=== PATIENT | female | born 1980 | race Caucasian/White ===

== ENCOUNTER → 2019-08-22 19:26 | Outpatient (CLI) | payer OTHER, SELFPAY ==
--- NOTE | ~2019-08-22 | XR_ITS ---
EXAMINATION: XR chest 2V EXAM DATE: 08/22/2019 19:41 INDICATION: Wheezing. TECHNIQUE: Frontal and lateral projections of the chest obtained and reviewed. There is no prior wilbert dy for comparison. FINDINGS: The lungs are clear. There are no pleural effusions. The cardiomediastinal silhouette is within normal limits. There is no pneumothorax suspected. The bones and soft tissues are unremarkab le. IMPRESSION: Normal chest x-ray exam. Reviewed, dictated and finalized at location A. RE AND AFTER SCHOOL DAYCARE WORKER IMPRESSION: Normal chest x-ray exam.
== END ==
PROVIDERS: PCP Emergency Medicine; Visit Provider Emergency Medicine
DX: R06.2 Wheezing (principal)
CPT/HCPCS: 71046

== ENCOUNTER 2025-04-19 08:27 | Emergency (ER) | payer OTHER, SELFPAY ==
--- NOTE | 2025-04-19 08:28 | ED_ITS ---
HPI - Back Pain/Injury General Chief Complaint: Back Pain/Injury Stated Complaint: Lower Back pain Time Seen by Provider: 04/19/25 08:28 Source: patient Mode of arrival: ambulatory Limitations: no limitations History of Present Illness HPI Narrative: Grecia is a 45 year old female patient presenting to the clinic today with c/o low back pain x 1 day. She reports she was getting out of the shower yesterday and twisted her back and immediately had tightness and sharp pain in her low back. She reports her pain is currently a 3/10. Took Tylenol and ibuprofen last night. Has taking and a Flexeril this morning and that has helped. Denies any saddle anesthesia or loss of bowel or bladder. No radiation of pain down her lower extremities. Denies any urinary symptoms, vaginal discharge, or odor. Last menstrual period was March 29 2025 Related Data Home Medications ?Medication ?Instructions ?Recorded ?Confirmed ?Last Taken ?Type escitalopram oxalate 10 mg tablet mg 04/19/25 Unknown History estradiol 0.025 mg/24 hr 04/19/25 Unknown History semiweekly transdermal patch (Lyllana) progesterone micronized 100 mg mg 04/19/25 Unknown Hi story capsule Allergies Allergy/AdvReac Type Severity Reaction Status Date / Time No Known Allergies Allergy Verified 04/19/25 08:42 Review of Systems Review of Systems: Pertinent positives per HPI. Patient denies any fever, chills, rash, headache, visual changes, dizziness, cough, runny nose, sore throat, shortness of breath, chest pain, palpitations, nausea, vomiting, diarrhea, constipation, abdominal pain, or any urinary issues. PMFSH Comments At the time of my signature, I reviewed and agree with the nursing past medical, surgical, social, and family history. There is no relevant family history pertinent to the patient complaint. Exam Narrative: General: Well-developed, obese, in no apparent distress Head: Normocephalic, atraumatic. Cardio: Regular rate and rhythm, s1 and s2 normal, no murmur appreciated. Resp: Clear to auscultation bilaterally, no rhonchi, rales, wheezing or rubs. Musculoskeletal: No deformity, no tenderness to palpation over the cervical or thoracic spine, tender to palpation over lower lumbar paraspinous musculature, grossly normal range of motion, muscle strength strong and equal in BLE. SLT negative, patellar reflexes 2/4 bilaterally, negative foot drop, normal gait and station Course Course Emergency Course: Portions of this record may have been created with voice recognition software. Level of Care: Express Care Visit Vital Signs Vital signs: Vital Signs Temperature 36.6 C 04/19/25 08:38 Pulse Rate 86 04/19/25 08:38 Respiratory Rate 20 04/19/25 08:38 Blood Pressure 137/96 H 04/19/25 08:38 Pulse Oximetry 100 04/19/25 08:38 Oxygen Delivery Room Air 04/19/25 08:38 Temperature 36.6 C 04/19/25 08:38 Pulse Rate 86 04/19/25 08:38 Respiratory Rate 20 04/19/25 08:38 Blood Pressure 137/96 H 04/19/25 08:38 Pulse Oximetry 100 04/19/25 08:38 Oxygen Delivery Room Air 04/19/25 08:38 Vital signs reviewed MDM - Back Pain/Injury MDM Narrative Medical decision making narrative: At the time of visit patient is resting comfortably on the exam table. Patient appears to be nontoxic. C/o low back pain x 1 day. She reports she was getting out of the shower yesterday and twisted her back and immediately had tightness and sharp pain in her low back. She reports her pain is currently a 3/10. Took Tylenol and ibuprofen last night. Has taking and a Flexeril this morning and that has helped. Denies any saddle anesthesia or loss of bowel or bladder. No radiation of pain down her lower extremities. Denies any urinary symptoms, vaginal discharge, or odor. Last menstrual period was March 29 2025. On exam patient has tenderness to palpation over the lumbar paraspinous musculature, no tenderness to palpation over the cervical, thoracic, or lumbar spine. Toradol 60 mg IM ordered Medications: Toradol 60 mg IM given in the clinic today. Pain improving down to a 2/10 after Toradol injection Plan: I suspect patient has low back strain/muscle spasms. Prescription for naproxen and Flexeril was sent to the pharmacy. Supportive measures were discussed with the patient and they voiced understanding discharge instructions and agrees to treatment plan. Return precautions reviewed Differential Diagnosis Differential diagnosis: Likely lumbar radiculopathy, sciatica, strain of lumbar region, discitis and other (Back muscles spasms) Discharge Plan Discharge Clinical Impression: Strain of lumbar region Qualifiers: Encounter type: initial encounter Qualified Code(s): S39.012A - Strain of muscle, fascia and tendon of lower back, initial encounter Patient Disposition: Home Condition: Stable Instructions: Antibiotic Form, Acute Low Back Pain (ED), Lower Back Exercises (ED) Additional Instructions: Toradol 60 mg IM given in the clinic today Take any prescription medication only as prescribed-naproxen and Flexeril Be mindful of sedation precautions given to you if taking a muscle relaxer. May use heat or ice to the affected area Consider massage or chiropractor adjustment if this was discussed with provider May use blue emu, lidocaine patches, or asper cream to affected area- do not apply heat or ice directly over cream- can cause burn. Complete appropriate back stretching exercises. Follow up with your PCP in 3-5 days if symptom persist. Patient Language: Vietnamese Prescriptions: New naproxen 500 mg tablet 500 mg PO BID PRN (Reason: pain) 7 Days Qty: 14 0RF cyclobenzaprine 10 mg tablet 10 mg PO Q8H PRN (Reason: muscle spasm) 7 Days Qty: 21 0RF No Action progesterone micronized 100 mg capsule estradiol [Lyllana] 0.025 mg/24 hr patch semiweekly escitalopram oxalate 10 mg tablet Follow-up/Referrals: UNKNOWN,DOCTOR [Non-Staff] Time of Disposition: 08:49 Quality NIHSS Nursing Documentation ED NIHSS nursing documentation: reviewed/agree
--- OUTSIDE RECORDS SUMMARY | 2025-04-19 08:33 | XMS_ITS | Clinical Summary ---
Author Organization [facility] Medical Office Building [address] Address [address] [place] [address] Care Team Providers Care Sales Operations Director Name Role Phone Tona Suárez NP Unavailable [phone] Bharathi Kemp MD Primary Care Provider [phone] Allergies No known active allergies Medications acetaminophen (TYLENOL) 500 mg tablet Take 2 tablets (1,000 mg total) by mouth every 6 (six) hours as needed for pain Active ibuprofen 200 mg tab/cap Take 2 tablet/capsu le (400 mg total) by mouth every 6 (six) hours as needed for pain Active Active Problems Problem Noted Date Diagnosed Date Annual physical exam 08/12/2024 Assessment & Plan (08/12/2024 8:48 AM SALES OFFICE ADMINISTRATOR): Discussed lifestyle modifications, diet and exercise. Routine blood work ordered/reviewed today. Yearly vision and dental examinations. Anal skin tag 09/23/2023 Hemorrhoids 09/23/2023 Heart palpitations 07/26/2022 Assessment & Plan (07/26/2022 9:11 AM SALES OFFICE ADMINISTRATOR): Currently asymptomatic, EKG performed in office today shows normal sinus rhythm. Should heart palpitations return or patient has worrisome symptoms please notify us and I will refer you to cardiology. For severe symptoms, go to nearest emergency room. Influenza vaccine refused 07/26/2022 Neck pain 02/10/2022 Assessment & Plan (02/10/2022 3:09 PM CDT): Hold off on returning to chiropractor for now. Xrays ordered. Rxs given, will follow. LUE numbness 02/10/2022 Assessment & Plan (02/10/2022 3:08 PM CDT): Trial of muscle relaxer, suspect torticollis. Will follow. Abnormal mammogram 09/19/2021 Abnormally low high density lipoprotein (HDL) cholesterol with hypertriglyceridemia 07/17/2021 Assessment & Plan (08/12/2024 8:14 AM SALES OFFICE ADMINISTRATOR): Lab Results Component Value Date CHOL 144 08/01/2023 CHOL 148 09/13/2022 CHOL 147 01/18/2022 Lab Results Component Value Date HDL 36 (L) 08/01/2023 HDL 38 (L) 09/13/2022 HDL 32 (L) 01/18/2022 Lab Results Component Value Date LDLCALC 90 08/01/2023 LDLCALC 97 09/13/2022 LDLCALC 95 01/18/2022 LDL 77 02/24/2014 Lab Results Component Value Date TRIG 89 08/01/2023 TRIG 67 09/13/2022 TRIG 98 01/18/2022 No results found for: POCCHDLR No results found for: POCNONHDL No results found for: POCCHLPL Repeat lipid panel now Assessment & Plan (08/01/2023 12:06 PM SALES OFFICE ADMINISTRATOR): Asymptomatic, labs ordered, will follow. Low-cholesterol diet recommended. Consider adding a omega-3 fatty acid supplement. Assessment & Plan (01/18/2022 10:21 AM CDT): Low chol diet recommended, labs ordered, will follow. Encouraged patient to re- start OTC omega-3 fatty acid supplements. Assessment & Plan (07/17/2021 9:39 AM SALES OFFICE ADMINISTRATOR): HDL too low, triglycerides mildly elevated, this is according to old data in EHR. Labs ordered, will follow. Recommended [id number] omega-3 fatty acid supplements, 2000 mg twice a day. Class 2 severe obesity due t o excess calories with serious comorbidity and body mass index (BMI) of 35.0 to 35.9 in adult 07/17/2021 Assessment & Plan (08/12/2024 8:14 AM SALES OFFICE ADMINISTRATOR): Wt Readings from Last 3 Encounters: 10/30/23 94.3 kg (208 lb) 09/17/23 94.8 kg (209 lb) 08/01/23 95 kg (209 lb 6.4 oz) BMI Readings from Last 3 Encounters: 10/30/23 35.70 kg/m 09/17/23 35.87 kg/m 08/01/23 35.94 kg/m Not at goal of bmi <30 Continue diet and exercise BMI Follow-up includes: nutrition counseling and exercise counseling. Assessment & Plan (08/01/2023 12:07 PM SALES OFFICE ADMINISTRATOR): Weight reduction, daily exercise and dietary modifications recommended., as obesity can complicate their hypercholesterolemia Assessment & Plan (02/10/2022 3:19 PM CDT): Weight reduction, daily exercise and dietary modifications recommended. Assessment & Plan (01/18/2022 10:20 AM CDT): Weight reduction, daily exercise and dietary modifications recommended. Assessment & Plan (07/17/2021 9:39 AM SALES OFFICE ADMINISTRATOR): Weight reduction, daily exercise and dietary modifications recommended. Menorrhagia 03/07/2020 Overview (07/26/2022): Note: Unchanged Menstrual migraine 08/02/2015 Migraine 02/24/2014 Overview (11/22/2016): Migraine Resolved Problems Problem Noted Date Diagnosed Date Resolved Date Other hemorrhoids 08/01/2023 08/12/2024 Assessment & Plan (08/01/2023 12:07 PM SALES OFFICE ADMINISTRATOR): Trial of suppositories. Referred to colorectal surgeon for further evaluation management. Torticollis, acute 02/07/2022 Assessment & Plan (02/10/2022 3:18 PM CDT): Steroid dose-pack ordered, will follow. Skin lesion of back 01/18/2022 08/12/20 24 Assessment & Plan (01/18/2022 10:21 AM CDT): Referred to dermatology for further eval/mgmt. Palpitations 07/17/2021 01/18/2022 Assessment & Plan (07/17/2021 9:38 AM SALES OFFICE ADMINISTRATOR): Asymptomatic during time of exam, the show mild sinus tachycardia. Referred to cardiology for further evaluation and management. Pain of right great toe 05/20/201606/20 Paronychia of great toe, right 05/20/2016 07/17/2021 Herpes simplex 05/15/2011 08/12/2024 Overview (07/26/2022): Note: + blood test with previous Immunizations Immunization Administration Dates Next Due Influenza, Quadrivalent, Spl it, Preservative Free, Intramuscular 06/23/2018 Influenza, Split 06/12/2010 Influenza, Trivalent, IM (MDV) 05/18/2011 Influenza, Unspecified 08/12/2024(Deferr ed: Patient Refused),08/01/2023(Deferred: Patient Refused),08/01/2022(Deferred: Patient Refused),07/17/2021(Deferred: Patient Refused),07/17/2021(Deferred: Patient Refused),05/18/2021(Deferred: Patient Refused),05/18/2020(Deferred: Patient Refused) Td, adsorbed 03/28/2006 Tdap 08/01/2023 Surgical History Surgery Date Site/Laterality Comments TONSILLECTOMY 08/18/1991 - 08/17/1992 Tonsillectomy ABLATION 07/18/2020 Medical History Medical History Date Comments Hx Other Medical tonsillectomy Smoking Migraines 2006 Family History Medical History Relation Name Comments Diabetes type II Father Raymon Diabetes -T ype 2; Cancer Maternal Grandfather Pacheco Prostate cancer Maternal Grandfather Pacheco Cancer Maternal Grandmother Maddie Cancer -; Glaucoma Maternal Grandmother Maddie Glaucom a; Depression Mother Eloise Tinsley Depression; Obesity Mother Eloise Tinsley Obesity; Breast cancer Mother's Sister 1 Mirella Cancer Mother's Sister 1 Mirella Other Mother's Sister 2 Beverley Cancer -br east mets to bone; Cause of : Cancer -breast mets to bone Anesthesia problems Neg Hx Relation Name Status Comments Father Raymon Alive Maternal Grandfather Pacheco Maternal Grandmother Maddie Mother Eloise Tinsley Alive Mother's Sister 1 Mirella (Age 62) Mother's Sister 2 Beverley Social History Tobacco Use Types Packs/Day Years Used Date Smoking Tobacco: Former Cigarettes Smokeless Tobacco: Never Tobacco Cessation:Counseling Given: No Alcohol Use Standard Drinks/Week Comments No 0 (1 standard drink = 0.6 oz pur e alcohol) AUDIT-C Answer Date Recorded Q1: How often do you have a drink containing alcohol? Never 08/12/2024 Q2: How many drinks containi ng alcohol do you have on a typical day when you are drinking? Patient does not drink Q3: How often do you have si x or more drinks on one occasion? Never 08/12/2024 PHQ-2 Answer Date Recorded PHQ-2 Total Score (If total score is 3 or more points, staff should administer the PHQ-9) 0 08/12/2024 Personal Safety Answer Date Recorded Have you ever been in or are you currently in a harmful physical or emotional relationship or is someone making you feel afraid or unsafe? Denies 11/21/2023 Comments No Sex and Gender Information Value Date Recorded Sex Assigned at Not on file Legal Sex Female 11:41 AM SALES OFFICE ADMINISTRATOR Gender Identity Female 09/13/2022 10:15 AM SALES OFFICE ADMINISTRATOR Sexual Orientation Straight 07/10/2021 3: 55 PM SALES OFFICE ADMINISTRATOR Obstetrics History Para Term AB IAB SAB Ectopic Multiple Livin g Live Births 2 2 2 Date Outcome GA Total Labor Labor/2nd/3rd Weight Sex Type Anes PTL Magui A1 A5 Name Clin Term Term Last Filed Vital Signs Vital Sign Reading Time Taken Comments Blood Pressure 110/78 08/12/2024 8:21 AM SALES OFFICE ADMINISTRATOR Pulse 86 08/12/2024 8:21 AM SALES OFFICE ADMINISTRATOR Temperature 36.6 C (97.9 F) 08/12/2024 8:21 AM SALES OFFICE ADMINISTRATOR Respiratory Rate 16 08/12/2024 8:21 AM SALES OFFICE ADMINISTRATOR Oxygen Saturation 98% 08/12/2024 8:21 AM SALES OFFICE ADMINISTRATOR Inhaled Oxygen Concentration - - Weight 95.3 kg (210 lb) 08/12/2024 8:21 AM SALES OFFICE ADMINISTRATOR Height 162.6 cm (5' 4.02) 08/12/2024 8:21 AM CS T Body Mass Index 36.03 08/12/2024 8:21 AM SALES OFFICE ADMINISTRATOR Plan of Treatment Health Maintenance Due Date Last Done Comments HPV Vaccines (1 - 3-dose SCDM series) 01/27/2008 Influenza Vaccine (#1) 2025 8, 05/18/2011, 06/12/2010 Depression Screening 08/12/2025 08/12/2024, 08/01/2023, 07/26/2022, Additional history exists Regular Well Visit/Exam 18-64 08/12/2025 08/12/2024, 08/01/2023, 07/26/2022, Additional history exists Cervical Cancer Screening 10/27/2025 10/27/2020 Breast Cancer Screening-Mammogram 11/05/2025 11/05/2024, 09/29/2023, 09/17/2021, Additional history exists DTaP/Tdap/Td Vaccine (2 - Td or Tdap) 08/01/2033 08/01/2023, 03/28/2006 Hepatitis B Screening Completed 08/12/2024 Hepatitis C Screening Completed 08/12/2024, 021 Pneumococcal vaccine <65 Aged Out No longer eligible based on patient's age to complete this topic Varicella Vaccines Discontinued Procedures Procedure Name Priority Date/Time Associated Diagnosis Comments SCREENING MAMMOGRAM BILATERAL W ZACK Schedule Routine, Read Routine (OP Routine) 11/05/2024 11:34 AM CDT Screening mammogram for breast cancer HEPATITIS C ANTIBODY Routine 08/12/2024 9:34 AM SALES OFFICE ADMINISTRATOR Need for hepatitis B screening test HM PAP SMEAR WITH HPV Routine 10/27/2020 from Last 3 Months or Most Recently Relevant to Health Maintenance Results * Screening Mammogram Bilateral W Zack (11/05/2024 11:34 AM CDT) Anatomical Region Laterality Modality Breast Bilateral Mammography 11/05/2024 11:4 6 AM CDT Impressions 11/05/2024 11:46 AM CDT There is no mammographic evidence of malignancy. A 1 year screening mammogram is recommended. BI-RADS: 1 - Negative. The patient has been or will be contacted. The patient will be entered into a reminder system with a target due date of 1 year for her next mammogram. Electronically signed by: Elena Abarca M.D. Narrative 11/05/2024 11:46 AM CDT EXAMINATION: SCREENING MAMMOGRAM BILATERAL W ZACK ORDERING HEALTHCARE PROVIDER: BHARATHI KEMP HISTORY: Routine screening mammography. COMPARISON: 09/29/2023, 04/26/2022, 11/02/2021, 09/17/2021, 08/24/2021 TECHNIQUE: CC and MLO views of the bilateral breasts were obtained with digital technique using breast tomosynthesis with C view. Computer aided detection was utilized. FINDINGS: DENSITY: There are scattered areas of fibroglandular density. BREASTS: There is a biopsy marker clip in the right breast. There are no suspicious masses, suspicious calcifications, or other suspicious findings in either breast. There has been no suspicious interval change. us Bharathi Kemp MD IM MAMMO PROCEDURES Final Resul t * Hepatitis C antibody Blood (08/12/2024 9:34 AM SALES OFFICE ADMINISTRATOR) Hep C Ab Nonreactive Nonreactive Comment: Interpretive Data Nonreactive: Antibodies to HCV not detected. Does NOT exclude the possibility of recent exposure to HCV. Equivocal: Equivocal for HCV antibodies. Supplemental molecular testing will be automatically performed to determine infection status in accordance with current CDC screening recommendations. Reactive: Positive for HCV antibodies. This may represent current or past HCV infection. Supplemental molecular testing will be automatically performed to determine current infection status in accordance with current CDC screening recommendations. Interpretive data was last revised on 2019. Testing performed by: [facility], [address] [place] [address]., [id number] Blood 08/12/2024 9:34 AM SALES OFFICE ADMINISTRATOR 08/12/2024 3:09 PM SALES OFFICE ADMINISTRATOR us Bharathi Kemp MD LAB MICROBIOLOGY - GENERAL ORDER JAROD Final Result [facility] [place] [address] * PAP SMEAR WITH HPV (10/27/2020) Scribed Pap Smear w/HPV Normal Historical Provider HEALTH MAINTENANCE Final Result from Last 3 Months or Most Recently Relevant to Health Maintenance Insurance [place] [facility] CHOICE PLUS Care Teams Sales Operations Director Relationship Specialty Start Date End Date Bharathi Kemp MD 2 [facility] [address] [address] PCP - General Family Medicine 08/12/24 Tona Suárez NP [address] [place] [address] Nurse Practitioner Obstetrics and Gynecology 11/05/21 Nomi Lo MD [facility] Medical group [facility] [address] [place] [address] Surgeon General Surgery 11/02/21
--- OUTSIDE RECORDS SUMMARY | 2025-04-19 08:33 | XMS_ITS | Encounter Summary ---
Author Organization [facility] Healthcare Address [address] [place] [address] Care Team Providers Care Supervisor Compounding And Finishing Name Role Phone Debora Roman NP Primary Care Provider [phone] Jeffery Jimenez MD Primary Care Provider [phone] Helena Ho DO Primary Care Provider [phone] Tona Suárez NP Unavailable [phone] No, Physician Primary Care Provider [phone] Bharathi Kemp MD Primary Care Provider [phone] Encounter Details Date Type Department Care Team (Late st Contact Info) Description 01/20/2020 Telephone [facility] [address] [place] [id number] Kasandra Mckenzie RDMS Social History Tobacco Use Types Packs/Day Years Used Date Smoking Tobacco: Never Alcohol Use Standard Drinks/Week Comments No 0 (1 standard drink = 0.6 oz pur e alcohol) Comments Unknown Sex and Gender Information Value Date Recorded Sex Assigned at Not on file Legal Sex Female 11:41 AM MANAGER OF LOSS PREVENTION OPERATIONS Gender Identity Female 09/13/2022 10:15 AM MANAGER OF LOSS PREVENTION OPERATIONS Sexual Orientation Straight 07/10/2021 3: 55 PM MANAGER OF LOSS PREVENTION OPERATIONS documented as of this encounter Plan of Treatment Not on file documented as of this encounter Visit Diagnoses Not on filedocumented in this encounter Care Teams Supervisor Compounding And Finishing Relationship Specialty Start Date End Date Debora Roman, HEADING REPAIRER [id number] [address] PCP - General 03/11/13 01/20/20 [place] [id number] [address] PCP - General 01/21/20 07/16/21 [place] [id number] [address] PCP - General Family Medicine 07/17/21 12/17/23 No, Physician PCP - General 07/28/24 08/11/24 Bharathi Kemp MD [address] [place] [id number] PCP - General Family Medicine 08/12/24 Tona Suárez NP [address] [place] [address] Nurse Practitioner Obstetrics and Gynecology 11/05/21 Nomi Lo MD [facility] Medical group [facility] [address] [place] [address] Surgeon General Surgery 11/02/21 documented as of this encounter
--- OUTSIDE RECORDS SUMMARY | 2025-04-19 08:33 | XMS_ITS | Clinical Summary ---
Author Organization [facility] Address [address] [facility], [place] [address] Phone Care Team Providers Care Examining Chair Assembler Name Role Phone Debora Roman APN Primary Care Provider Karel Brandon DP[place]inc[place] Unavailable [phone] Allergies No known active allergies Medications No known medications Active Problems Problem Noted Date Diagnosed Date Pain of right great toe 05/20/2016 Paronychia of great toe, right 05/20/2016 Family History Medical History Relation Name Comments No Known Problems Mother Relation Name Status Comments Mother Alive Social History Tobacco Use Types Packs/Day Years Used Date Smoking Tobacco: Former Cigarettes 1 10 Smokeless Tobacco: Never Tobacco Cessation:Counseling Given: Yes Alcohol Use Standard Drinks/Week Comments Yes 0 (1 standard drink = 0.6 oz pur e alcohol) occasionally Comments No Sex and Gender Information Value Date Recorded Sex Assigned at Not on file Legal Sex Female 7:08 PM CDT Gender Identity Not on file Sexual Orientation Not on file Last Filed Vital Signs Vital Sign Reading Time Taken Comments Blood Pressure 124/88 05/20/2016 2:04 PM CDT Pulse 90 05/20/2016 2:04 PM CDT Temperature 36.4 C (97.5 F) 05/20/2016 2:04 PM CDT Respiratory Rate 18 05/20/2016 2:04 PM CDT Oxygen Saturation - - Inhaled Oxygen Concentration - - Weight 81.6 kg (180 lb) 05/20/2016 2:04 PM CDT Height 162.6 cm (5' 4) 05/20/2016 2:04 PM CDT Body Mass Index 30.9 05/20/2016 2:04 PM CDT Plan of Treatment Health Maintenance Due Date Last Done Comments Hepatitis C Virus (HCV) Screening 1981 TdaP Immunization 1981 Hepatitis B Immunization (1 of 3 - 19+ 3-dose series) 01/27/2000 Pap Smear 2002 Human Papillomavirus (HPV) Immunization (1 - 3-dose SCDM series) 01/27/2008 Cervical Cancer Screening (CCS) 2011 HPV/Cotest 2011 SARS-COV-2 Immunization ( - season) 2024 Influenza Immunization (#1) 2025 Respiratory Syncytial Virus (RSV) Immunization (Adult) (1 - 1-dose 75+ series) 01/27/2056 Meningococcal Immunization (ACWY) Aged Out No longer eligible based on patient's age to complete this topic Pneumococcal Immunization Combined Aged Out No longer eligible based on patient's age to complete this topic Rotavirus Immunization Aged Out No lo nger eligible based on patient's age to complete this topic Insurance MEDICAID [place] Care Teams Examining Chair Assembler Relationship Specialty Start Date End Date Debora Roman APN PCP - General Advanced Practice Nurse 05/20/16 Karel Carlson DPM Podiatry 05/20/16
[2025-04-19 08:38] VITALS: BP 137/96; PULSE 86; RESP 20; TEMP 36.6; O2SAT 100
[2025-04-19] MEDS: KETOROLAC (*BKC) 60 MG/2 ML VIAL IM (08:53)
== END 2025-04-19 09:08 | disposition home or self-care (01) ==
PROVIDERS: Emergency Provider Nurse Practitioner Family
DX: S39.012A Strain of muscle, fascia and tendon of lower back, initial encounter (principal); X50.1XXA Overexertion from prolonged static or awkward postures, initial encounter
CPT/HCPCS: 96372; 99213; G0463; J1885